=== PATIENT | male | born 1965 | race Caucasian/White ===

== ENCOUNTER → 2017-10-30 | Outpatient (CLI) | payer OTHER ==
[2017-10-30 08:45] LABS: BASOPHIL % 0.4 % (0-2); PLATELET COUNT 344 x10^3mcL (130-400); RED CELL DISTRIBUTION WIDTH 13.9 % (11.5-14.5)
[2017-10-30 10:44] LABS: ERYTHROCYTE SED RATE 26 mm/hr (0-15)
== END | disposition home or self-care (01) ==
LOC: LB 07:56
DX: R71.8 Other abnormality of red blood cells (principal)

== ENCOUNTER 2018-02-17 04:49 | Emergency (ER) | payer OTHER ==
[~2018-02-17] VITALS: Ht 175.3 cm; Wt 115.2 kg
[2018-02-17 04:52] VITALS: Ht 175.3 cm; Wt 115.2 kg
[2018-02-17 06:28] VITALS: BP 100/72
== END 2018-02-17 06:28 | disposition home or self-care (01) ==
LOC: ED 04:49
DX: S01.81XA Laceration without foreign body of other part of head, initial encounter (principal); S09.8XXA Other specified injuries of head, initial encounter; F10.129 Alcohol abuse with intoxication, unspecified; W01.0XXA Fall on same level from slipping, tripping and stumbling without subsequent striking against object, initial encounter; Y93.89 Activity, other specified; Y92.89 Other specified places as the place of occurrence of the external cause; Y99.8 Other external cause status
CPT/HCPCS: 90715; J0561; J2001; Q0162

== ENCOUNTER 2018-04-14 14:02 | Inpatient (IN) | payer OTHER ==
[~2018-04-14] VITALS: Ht 172.7 cm; Wt 119.7 kg
[2018-04-14 14:11] VITALS: Ht 172.7 cm; Wt 119.7 kg
[2018-04-14 17:16] LABS: PLATELET COUNT 215 x10^3mcL (130-400); RED CELL DISTRIBUTION WIDTH 12.7 % (11.5-14.5)
[2018-04-14 17:28] LABS: CALCIUM 9.3 mg/dL (8.5-10.1); CARBON DIOXIDE 29.5 mmol/L (21-32); CHLORIDE SERUM 99 mmol/L (98-107); CREATININE SERUM 1.3 mg/dL (0.7-1.3); GFR1 > 60 mL/min; GLUCOSE SERUM 100 mg/dL (74-106); POTASSIUM SERUM 3.9 mmol/L (3.5-5.1); SODIUM SERUM 139 mmol/L (136-145)
[2018-04-14 17:35] LABS: ALBUMIN 4.1 g/dL (3.4-5.0); ALKALINE PHOSPHATASE 70 U/L (46-116); ALT/SGPT 45 U/L (16-63); AMYLASE 123 U/L (25-115); AST/SGOT 19 U/L (15-37); BILIRUBIN TOTAL 0.43 mg/dL (0.20-1.00); CHOLESTEROL 274 mg/dL (<200); HDL CHOLESTEROL 39 mg/dL (40-60); TOTAL PROTEIN, SERUM 8.2 g/dL (6.4-8.2)
[2018-04-14 18:04] LABS: LIPASE 2349 IU/L (73-393)
[2018-04-14 18:12] LABS: T4(THYROXINE) 7.1 ug/dL (4.7-13.3)
[2018-04-14 18:32] LABS: microscopic required? YES; urine erythrocyte 2+ (NEGATIVE)
[2018-04-14 18:39] LABS: AMPHETAMINE QUAL UR NONE DETECTED (See below)
[2018-04-14 19:55] LABS: BAND NEUTROPHIL 3 % (0-10); MONOCYTE 4 % (0-7); SEGMENTED NEUTROPHILS 82 % (37-75)
[2018-04-14 19:56] LABS: PLATELET MORPHOLOGY PLATELETS NORMAL; rbc morphology (normal/abnorm) NORMAL (NORMAL)
[2018-04-14 20:32] LABS: MAGNESIUM 1.8 mg/dL (1.8-2.4); PHOSPHOROUS 3.9 mg/dL (2.5-4.9)
[2018-04-14] MEDS ORDERED: CLONAZEPAM0.5 MG (20:35)
[2018-04-14] MEDS ORDERED: MIN1 (20:36)
[2018-04-14] MEDS ORDERED: ALEVE220 M1 (20:36)
[2018-04-14] MEDS ORDERED: CLOMIPHENE CITR50 MG (20:36)
[2018-04-14] MEDS ORDERED: [UNRECOGNIZED DRUG - OTHER] (20:37)
[2018-04-14] MEDS ORDERED: LISINOPRIL2.5 MG (20:37)
[2018-04-14 20:58] VITALS: BP 120/69
[2018-04-14] MEDS ORDERED: AMBIEN5 MG PO (23:07)
[2018-04-14] MEDS ORDERED: BACLOFEN10 MG PO (23:08)
[2018-04-15 06:10] VITALS: BP 130/91
[2018-04-15 07:00] LABS: BASOPHIL % 0.3 % (0-2); PLATELET COUNT 185 x10^3mcL (130-400); RED CELL DISTRIBUTION WIDTH 12.7 % (11.5-14.5)
[2018-04-15 07:07] LABS: CALCIUM 8.5 mg/dL (8.5-10.1); CARBON DIOXIDE 27.9 mmol/L (21-32); CHLORIDE SERUM 103 mmol/L (98-107); CREATININE SERUM 1.2 mg/dL (0.7-1.3); GFR1 > 60 mL/min; GLUCOSE SERUM 105 mg/dL (74-106); LIPASE 192 IU/L (73-393); MAGNESIUM 1.9 mg/dL (1.8-2.4); PHOSPHOROUS 2.7 mg/dL (2.5-4.9); POTASSIUM SERUM 3.9 mmol/L (3.5-5.1); SODIUM SERUM 138 mmol/L (136-145)
[2018-04-15 09:19] VITALS: BP 142/83
[2018-04-15 13:57] VITALS: BP 145/95
[2018-04-15 16:29] VITALS: BP 169/86
[2018-04-15 20:34] VITALS: BP 142/86
[2018-04-16 05:35] VITALS: BP 144/88
[2018-04-16 06:39] LABS: BASOPHIL % 0.5 % (0-2); PLATELET COUNT 173 x10^3mcL (130-400); RED CELL DISTRIBUTION WIDTH 12.8 % (11.5-14.5)
[2018-04-16 06:58] LABS: CALCIUM 8.6 mg/dL (8.5-10.1); CARBON DIOXIDE 26.9 mmol/L (21-32); CHLORIDE SERUM 97 mmol/L (98-107); CREATININE SERUM 1.1 mg/dL (0.7-1.3); GFR1 > 60 mL/min; GLUCOSE SERUM 95 mg/dL (74-106); PHOSPHOROUS 2.7 mg/dL (2.5-4.9); POTASSIUM SERUM 3.7 mmol/L (3.5-5.1); SODIUM SERUM 132 mmol/L (136-145)
[2018-04-16 09:00] VITALS: BP 155/64
[2018-04-16 12:50] VITALS: BP 134/95
[2018-04-16 17:06] VITALS: BP 152/99
[2018-04-16 21:18] VITALS: BP 128/88
[2018-04-17 05:49] VITALS: BP 138/92
[2018-04-17 06:45] LABS: BASOPHIL % 0.8 % (0-2); PLATELET COUNT 188 x10^3mcL (130-400); RED CELL DISTRIBUTION WIDTH 12.6 % (11.5-14.5)
[2018-04-17 07:12] LABS: C REACTIVE PROTEIN 18.5 mg/dL (<=0.9); CALCIUM 8.3 mg/dL (8.5-10.1); CARBON DIOXIDE 27.4 mmol/L (21-32); CHLORIDE SERUM 101 mmol/L (98-107); CREATININE SERUM 1.1 mg/dL (0.7-1.3); GFR1 > 60 mL/min; GLUCOSE SERUM 98 mg/dL (74-106); MAGNESIUM 2.1 mg/dL (1.8-2.4); PHOSPHOROUS 2.8 mg/dL (2.5-4.9); SODIUM SERUM 137 mmol/L (136-145)
[2018-04-17 09:26] VITALS: BP 138/94
[2018-04-17] MEDS ORDERED: LIPI10 PO (11:41)
[2018-04-17] MEDS ORDERED: ALT2.5 PO (11:41)
[2018-04-17] MEDS ORDERED: BAY PO (11:42)
[2018-04-17] MEDS ORDERED: HYD25 PO (11:43)
[2018-04-17] MEDS ORDERED: KLOR-CON 1010 MEQ PO (11:43)
[2018-04-17 13:37] VITALS: BP 138/94
[2018-04-17] MEDS ORDERED: NORCO1 TA2 PO (13:46)
[2018-04-17 16:45] LABS: ERYTHROCYTE SED RATE 60 mm/hr (0-15)
== END 2018-04-17 14:30 | disposition home or self-care (01) | DRG 871 ==
LOC: ED 14:02 → DU 19:45
PROVIDERS: Emergency Medicine; Internal Medicine; ADMIT Internal Medicine
PROC: 0DB68ZX Excision of Stomach, Via Natural or Artificial Opening Endoscopic, Diagnostic (ICD-10-PCS; 2018-04-16)
PROC: 0DB58ZX Excision of Esophagus, Via Natural or Artificial Opening Endoscopic, Diagnostic (ICD-10-PCS; principal; 2018-04-16 10:15)
DX: A41.9 Sepsis, unspecified organism (principal); K85.90 Acute pancreatitis without necrosis or infection, unspecified; N39.0 Urinary tract infection, site not specified; Z68.41 Body mass index [BMI] 40.0-44.9, adult; K29.70 Gastritis, unspecified, without bleeding; K21.0 Gastro-esophageal reflux disease with esophagitis; K29.80 Duodenitis without bleeding; K21.9 Gastro-esophageal reflux disease without esophagitis; I10 Essential (primary) hypertension; E78.00 Pure hypercholesterolemia, unspecified; E78.5 Hyperlipidemia, unspecified; G43.909 Migraine, unspecified, not intractable, without status migrainosus; M47.9 Spondylosis, unspecified; E66.01 Morbid (severe) obesity due to excess calories; F43.10 Post-traumatic stress disorder, unspecified
CPT/HCPCS: 43235; 83880; 87804; C9113; J0696; J1200; J1610; J1885; J2250; J2270; J2310; J2405; J3010; J3490; J7030; J7620